=== PATIENT | female | born 1930 | race Caucasian/White ===

== ENCOUNTER → 2018-04-23 | Outpatient (CLI) | payer OTHER ==
[~2018-04-23] VITALS: Ht 154.9 cm; Wt 52.6 kg
[~2018-04-23] MED LIST: AMLODIPINE BESYL5 MG PO; ASCORBIC ACID100 MG PO; ATORVASTATIN CA10 MG PO; CENTRUM SILVER1 EAC4 PO; LISINOPRIL10 MG PO; MEGA BIOTIN10000 MCG PO; ODOR FREE GARL100 MG PO; OMEGA-3 ACID ETH1 GM PO; PRILOSEC20 MG PO; QUINAPRIL-HCTZ1 EAC1 PO; SPIRONOLACTONE25 MG PO; ST. JOSEPH ASPI81 MG PO; TOPROL XL100 MG PO; VITAMIN E400 UNIT PO; XARELTO15 MG PO; XARELTO20 MG PO
== END | disposition home or self-care (01) ==
LOC: AMB 11:45
PROC: 0F798DZ Dilation of Common Bile Duct with Intraluminal Device, Via Natural or Artificial Opening Endoscopic (ICD-10-PCS; principal; 2018-04-23)
DX: K83.1 Obstruction of bile duct (principal); C25.9 Malignant neoplasm of pancreas, unspecified; I48.2 Chronic atrial fibrillation; Z87.891 Personal history of nicotine dependence; Z79.01 Long term (current) use of anticoagulants; I25.10 Atherosclerotic heart disease of native coronary artery without angina pectoris; I10 Essential (primary) hypertension; K21.0 Gastro-esophageal reflux disease with esophagitis; E78.5 Hyperlipidemia, unspecified
CPT/HCPCS: 74330; 87081; 87186; C1769; C1876; J0330; J3010